=== PATIENT | male | born 1990 | race Caucasian/White ===

== ENCOUNTER → 2020-07-15 09:10 | Outpatient (BNVA) | payer OTHER, SELFPAY | PROVIDERS: PCP Internal Medicine; Visit Provider Internal Medicine | DX: Z57.5 Occupational exposure to toxic agents in other industries (principal) | CPT/HCPCS: 99203 ==

== ENCOUNTER 2021-03-08 15:45 | Outpatient (REF) | payer OTHER, SELFPAY | END 2021-03-08 15:46 | disposition home or self-care (01) | LOC: HO.LNP 15:45 | PROVIDERS: PCP Internal Medicine; Referring Provider Internal Medicine; Visit Provider Surgery | DX: L72.0 Epidermal cyst (principal); R22.2 Localized swelling, mass and lump, trunk | CPT/HCPCS: 11403; 88304 ==

== ENCOUNTER → 2021-03-22 09:22 | Outpatient (BNVA) | payer OTHER, SELFPAY | PROVIDERS: PCP Internal Medicine; Visit Provider Surgery | DX: L72.0 Epidermal cyst (principal) ==

== ENCOUNTER 2021-12-19 10:38 | Outpatient (REF) | payer OTHER, SELFPAY ==
[2021-12-19 14:01] LABS: MANUAL DIFF FLAG NO
[2021-12-19 14:22] LABS: Basophils Absolute Auto 0.1 X10*3/uL (0.0-0.2); Basophils Percent Auto 1.5 % (0-2); Eosinophils Absolute Auto 0.2 X10*3/uL (0.0-0.4); Eosinophils Percent Auto 3.5 % (0-4); Hematocrit 43.6 % (42.0-52.0); Hemoglobin 14.4 g/dl (14.0-18.0); Imm Gran Abs Auto 0.04 X10*3/uL (0.00-0.03); Imm Gran Pct Auto 0.6 % (0.0-0.4); Lymphocytes Absolute Auto 1.7 X10*3/uL (1.2-4.9); Lymphocytes Percent Auto 25.8 % (20-40); Mean Corpuscular Hemoglobin 31.2 pg (27.0-33.0); Mean Corpuscular Volume 94.4 fL (80.0-98.0); Mean Platelet Volume 10.4 fL (9.4-12.4); Monocytes Absolute Auto 0.5 X10*3/uL (0.1-1.2); Monocytes Percent Auto 8.3 % (2-11); Neutrophils Absolute Auto 3.9 x10*3/uL (2.0-8.3); Neutrophils Percent Auto 60.3 % (45-73); Platelet Count 348 X10*3/uL (160-400); Red Blood Count 4.62 X10*6/uL (4.60-5.80); Red Cell Distribution Width 11.8 % (11.0-16.0); White Blood Count 6.5 X10*3/uL (4.8-10.8)
[2021-12-19 14:49] LABS: Alanine Aminotransferase 32 U/L (0-40); Albumin Level 4.4 g/dL (3.5-5.0); Alkaline Phosphatase 62 U/L (39-117); Anion Gap 12 (12-20); Aspartate Amino Transferase 21 U/L (5-37); Bilirubin Total 0.7 mg/dL (0.0-1.0); Blood Urea Nitrogen 11 mg/dL (9-16); Calcium 9.2 mg/dL (8.4-10.2); Carbon Dioxide 26 mmol/L (22-29); Chloride 104 mmol/L (96-108); Estimated Glomerular Filt Rate > 60; Glucose Random 94 mg/dL (60-115); Potassium 4.3 mmol/L (3.3-5.1); Sodium 138 mmol/L (135-145); Total Protein 7.2 g/dL (6.5-8.0)
[2021-12-19 15:13] LABS: TSH reflex Free T4 2.56 uIU/mL (0.32-4.0)
[2021-12-19 15:21] LABS: Vitamin B12 242 pg/mL (200-900)
[2021-12-20 21:56] LABS: LDL Cholesterol Direct 131 mg/dL (<100)
[2021-12-23 13:47] LABS: Vitamin D 25-OH, D2 <4 ng/mL; Vitamin D 25-OH, D3 20 ng/mL; Vitamin D 25-OH, Total 20 ng/mL (30-100)
== END 2021-12-19 10:39 | disposition home or self-care (01) ==
LOC: HO.HMGCLDS 10:38
PROVIDERS: PCP Internal Medicine; Visit Provider Internal Medicine
DX: J45.40 Moderate persistent asthma, uncomplicated (principal); R53.83 Other fatigue
CPT/HCPCS: 36415; 80053; 82306; 82607; 83721; 84443; 85025

== ENCOUNTER 2023-03-29 08:14 | Outpatient (AMB) | payer OTHER, SELFPAY ==
[2023-03-29 08:20] VITALS: BP 118/72; PULSE 65; O2SAT 98; BMI 27.4
--- NOTE | 2023-03-29 08:20 | MHC.PC.OV ---
Vital Signs 03/29/23 08:20 Height 6 ft 1 in Weight 207 lb 6 oz BMI 27.4 BP 118/72 Blood Pressure Location Rt brachial Position Sitting Pulse 65 Pulse Source Pulse Oximeter Pulse Oximetry (%) 98 Oxygen Delivery Method Room Air Intake Visit Reasons: medication Follow Up Allergies No Known Allergies [NO KNOWN ALLERGIES] Allergy (Unknown, Verified 03/29/23 08:22) UNKNOWN Medication List - Last Reconciled 03/29/23 by Teresa Vaughan MD albuterol sulfate 90 mcg/actuation (ProAir HFA) 1 inh inhalation QID PRN 90 days fluticasone propion-salmeterol 250-50 mcg/dose (Wixela Inhub) 1 ea PO BID 90 days Tobacco use date assessed: 03/29/23 Dental Screening Dental Screen Date: 03/29/23 Did you have a dental visit in the last 12 months?: Yes Did you have a dental problem in the last 6 months where you did not have access to dental care?: No Was dental information given to patient?: Patient has dentist HPI medication Follow Up HPI Details Patient is 32-year-old gentleman came in today for a regular follow-up Patient was seen more than a year ago. He has asthma so far he is doing well with Wixela as a maintenance inhaler and albuterol as needed. When he is using maintenance inhaler he does not need to use albuterol he is tells me Recently he ran out because he did not come in for follow-up and used his grandmother's inhaler which is Advair. Patient says that he likes that better I have sent Advair for him. He is complaining of feeling palpitations off and on at night Upon asking more questions he told me that sometimes he eats very late and then goes to bed. He does feel a reflux in his throat when he does that. We talked about acid reflux and dietary control. I would recommend not to eat anything for at least 5 hours before bedtime and avoid spicy foods. He does not want to take any medication for that, he says that he will control it with diet. We did the EKG today which showed sinus Tom at 58 beats per minute inverted T-waves in AVR and V1 RR in AVF I have consulted Cardiology EKG copy was sent over for further comment Patient will return in 6 months for physical examination We talked about regular follow-up visit I would like to see him at least every 6 months. COUNTS INCLUDE 234 BEDS AT THE [facility] Medical History Epidermal cyst Surgical History History of excision of epidermal inclusion cyst History of wisdom tooth extraction Social History Housing: House Patient Tobacco Use Status: Never used Tobacco e-Cigarette/Vaping Use: Never Used Second Hand Smoke Exposure: No service: No Current occupational status: employed Cognitive needs: No Hearing needs: No Vision needs: No Questionnaire PHQ-9 Over the last 2 weeks, how often have you been bothered by any of the following problems? 1. Little interest or pleasure in doing things: not at all 2. Feeling down, depressed, or hopeless: not at all 3. Trouble falling or staying asleep, or sleeping too much: several days 4. Feeling tired or having little energy: several days 5. Poor appetite or overeating: several days 6. Feeling bad about yourself - or that you are a failure or have let yourself or your family down: not at all 7. Trouble concentrating on things, such as reading the newspaper or watching television: not at all 8. Moving or speaking so slowly that other people could have noticed. Or the opposite - being so fidgety or restless that you have been moving around a lot more than usual: not at all 9. Thoughts that you would be better off or of hurting yourself in some way: not at all Total score: 3 Depression Screening Interpretation: Negative Depression Screening Done: Yes 68265 - PHQ-9 Billing: Yes Source: Developed by Drs. Austyn Rivera, Teetee Zamarripa, Rom Robledo and colleagues, with an educational enedina from [employer]. Thrive Questionnaire Date Thrive assessed: 03/29/23 I am a: Patient What is your living situation today?: I have a steady place to live Within the past 12 months, did the food you bought not last and you didn't have the money to get more?: Never true Within the past 12 months, did you worry whether your food would run out before you got money to buy more?: Never true Do you have trouble paying for medicines?: No Do you have trouble getting transportation to medical appointments?: No Do you have trouble paying your heating and electricity bill?: No Do you have trouble taking care of your child, family member or friend?: No Do you have trouble with day-to-day activities such as bathing, preparing meals, shopping, managing finances, etc.?: No Are you currently unemployed and looking for a job?: No Are you interested in more education?: No AUDIT C Alcohol Use Questionnaire (AUDIT-C) 1. How often do you have a drink containing alcohol?: Monthly or less 2. How many drinks containing alcohol do you have on a typical day when you are drinking?: 1 or 2 3. How often do you have six or more drinks on one occasion?: Never Total Score: 1 Score Reviewed/Action Taken: Yes JAMEL-7 AMB Questionnaire JAMEL-7 Date JAMEL - 7 assessed: 03/29/23 Feeling nervous, anxious, or on edge: 1 = Several days Not being able to stop or control worryin = Not at all Worrying too much about different things: 1 = Several days Trouble relaxin = Not at all Being so restless that it is hard to sit still: 0 = Not at all Becoming easily annoyed or irritable: 1 = Several days Feeling afraid as if something awful might happen: 0 = Not at all Total JAMEL-7 score (0-4 normal; 5-9 mild; 10-14 moderate; 15-21 severe): 3 Source: Developed by Drs. Austyn Rivera, Teetee Zamarripa, Rom Robledo and colleagues, with an educational enedina from [employer]. JAMEL-7 Assessment Billing JAMEL-7 Assessment Tool: JAMEL-7 Assessment 66724 Review of Systems Const Denies chills, Denies excessive sweating, Denies fever(s) and Denies poor appetite Eyes Denies blurry vision and Denies eye pain ENT Denies disequilibrium, Denies sore throat, Denies throat swelling and Denies tongue swelling Card Denies radiating jaw, neck or arm pain and Denies paroxysmal nocturnal dyspnea Resp Denies cough and Denies hemoptysis GI Denies melena, Denies change in stool character, Denies coffee ground emesis and Denies vomiting Musc Reports as per HPI Skin/Breast Reports as per HPI Neuro Denies tremor(s) and Denies disequilibrium Endo Denies cold intolerance and Denies excessive sweating Aller/Immun Denies throat swelling and Denies tongue swelling Physical exam (Primary Care) Vital Signs: Last Vital Signs Pulse 65 03/29/23 08:20 BP 118/72 03/29/23 08:20 Pulse Ox 98 03/29/23 08:20 Oxygen Delivery Method Room Air 03/29/23 08:20 BMI result Body Mass Index 27.4 Tobacco/Smoking Status: Tobacco use Status Tobacco use date assessed 03/29/23 03/29/23 08:22 Patient Tobacco Use Status Never used Tobacco 03/29/23 08:22 e-Cigarette/Vaping Use Never Used 03/29/23 08:22 PHQ-9: PHQ-9 Score PHQ-9: Total score 3 03/29/23 08:47 Depression Screening Interpretation: Negative Thrive Assessment: Date of Thrive Assessment Date Thrive assessed 03/29/23 03/29/23 08:43 Const General: cooperative, comfortable and no acute distress Orientation/consciousness: patient oriented x3 HENMT Head: Yes normocephalic and Yes atraumatic Ears: hearing grossly normal bilaterally Eyes General: appearance normal, both eyes and all related structures Neck Neck: Yes no lymphadenopathy and No tracheal deviation Resp Effort & Inspection: normal respiratory effort, able to speak in complete sentences and no audible wheezes Cardio Other: Rhythm: regular rhythm Heart sounds: S1 normal heart sound present and S2 normal heart sound present GI Palpation (GI): Soft to palpation and nontender Auscultation: normal bowel sounds Skin General skin exam: turgor normal Neuro General: patient oriented x3 and moves all extremities Gait exam (Neuro): Normal gait present Extrem Right lower extremity: no edema Left lower extremity: no edema Psych Affect: normal affect Attitude: cooperative Office Procedures EKG [id number], Complete Assessment and Plan Assessment & Plan (1) Asthma, moderate persistent: Code(s): J45.40 - Moderate persistent asthma, uncomplicated Qualifiers: Asthma complication type: uncomplicated Qualified Code(s): J45.40 - Moderate persistent asthma, uncomplicated (2) Palpitations: Code(s): R00.2 - Palpitations (3) Vitamin D deficiency: Code(s): E55.9 - Vitamin D deficiency, unspecified (4) Dyspepsia: Code(s): R10.13 - Epigastric pain Plan Patient is 32-year-old gentleman came in today for a regular follow-up Patient was seen more than a year ago. He has asthma so far he is doing well with Wixela as a maintenance inhaler and albuterol as needed. When he is using maintenance inhaler he does not need to use albuterol he is tells me Recently he ran out because he did not come in for follow-up and used his grandmother's inhaler which is Advair. Patient says that he likes that better I have sent Advair for him. He is complaining of feeling palpitations off and on at night Upon asking more questions he told me that sometimes he eats very late and then goes to bed. He does feel a reflux in his throat when he does that. We talked about acid reflux and dietary control. I would recommend not to eat anything for at least 5 hours before bedtime and avoid spicy foods. He does not want to take any medication for that, he says that he will control it with diet. We did the EKG today which showed sinus Tom at 58 beats per minute inverted T-waves in AVR and V1 RR in AVF I have consulted Cardiology EKG copy was sent over for further comment Patient will return in 6 months for physical examination We talked about regular follow-up visit I would like to see him at least every 6 months. Orders: Orders AMB EKG-In Office Today R00.2 - Palpitations Medications: New Advair HFA 230-21 mcg/actuation (fluticasone propion-salmeterol) 2 puffs inhalation BID 12 grams 5RF 30 days NS Coding Level of Care Code Est Pt Level 5 (38056) Diagnoses Moderate persistent asthma without complication J45.40 Asthma complication type: uncomplicated Palpitations R00.2 Vitamin D deficiency E55.9 Dyspepsia R10.13 CPT Codes EKG - CPT: 55918-[id number], Complete ([id number]) Additional Codes JAMEL-7 Assessment Billing - JAMEL-7 Assessment Tool: JAMEL-7 Assessment 55644 ([id number]) Time Spent (min) 45 Comment 5 prep, 30 with the patient, 10 charting coordination of care
== END 2023-03-29 09:38 | disposition home or self-care (01) ==
PROVIDERS: PCP Internal Medicine; Visit Provider Internal Medicine
DX: J45.40 Moderate persistent asthma, uncomplicated (principal); R00.2 Palpitations; E55.9 Vitamin D deficiency, unspecified; R10.13 Epigastric pain
CPT/HCPCS: 93000; 99215

== ENCOUNTER 2023-06-26 13:53 | Outpatient (AMB) | payer OTHER, SELFPAY ==
[2023-06-26 14:13] VITALS: BP 130/60; PULSE 77; BMI 27.6
--- NOTE | 2023-06-26 14:13 | A.OFFVIS_ITS ---
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 He apparently had an EKG performed previously when he was complaining of some chest discomfort. EKG showed anteroseptal infarct. He was referred to us for further assessment. Discussing with him he has been experiencing significant GI issues with dysphagia and for the last 6 months he has been having trouble swallowing solid food. He is saying that this is a consistent symptom for him. Denying any reflux. He was a heavy alcohol drinker previously and quit over the last 1- 2 months. He seems quite anxious. He is getting some shortness of breath with activities. He also has a left-sided dull chest discomfort. This happens when he is eating. 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 During activities he does not get significant issues otherwise. [facility] Medical History Epidermal cyst Surgical History History of excision of epidermal inclusion cyst History of wisdom tooth extraction Social History Housing: House Patient Tobacco Use Status: Never used Tobacco e-Cigarette/Vaping Use: Never Used Second Hand Smoke Exposure: No service: No Current occupational status: employed Cognitive needs: No Hearing needs: No Vision needs: No Review of Systems Const Reports chills, Reports fatigue, Reports fever(s), Reports frequent falls, Reports weakness, Reports weight gain and Reports weight loss ENT Reports dizziness Card Reports chest pain, Reports leg edema, Reports lightheadedness, Reports palpitations, Reports dyspnea, Reports dyspnea on exertion and Reports orthopnea Resp Reports cough, Reports dyspnea and Reports dyspnea on exertion GI Reports bloating and Reports change in bowel habits Musc Reports muscle weakness, Reports numbness and Reports tingling Neuro Reports dizziness, Reports frequent falls, Reports numbness, Reports tingling and Reports weakness Endo Reports fatigue and Reports palpitations Physical Exam Vital Signs: Last Vital Signs Pulse 77 06/26/23 14:13 BP 130/60 06/26/23 14:13 BMI result Body Mass Index 27.6 GENERAL APPEARANCE: in no acute distress, pleasant. Anxious appearing. NECK: no carotid bruit, no jugular venous distention. SKIN: no suspicious lesions, warm and dry. HEART: no murmurs, regular rate and rhythm. LUNGS: clear to auscultation bilaterally. ABDOMEN: soft, nontender. EXTREMITIES: no edema. PERIPHERAL PULSES: equal. NEUROLOGIC: No gross deficits, AAO X 3 Office Procedures EKG Details: Sinus rhythm 77 beats per minute, normal axis, normal ECG, QTC 414 milliseconds. [id number], Complete Assessment & Plan Assessment & Plan (1) Dysphagia: Code(s): R13.10 - Dysphagia, unspecified (2) Abnormal EKG: Code(s): R94.31 - Abnormal electrocardiogram [ECG] [EKG] (3) HOLT (dyspnea on exertion): Code(s): R06.09 - Other forms of dyspnea Plan [age] gentleman presenting for abnormal EKG. EKG abnormality of anteroseptal infarct was due to lead positioning. His EKG in our office is normal. He is complaining of some dyspnea on exertion. Will get an echocardiogram to rule out any structural issues specially because he was a heavy drinker as of 1 month ago. Given dysphagia for solids, I am referring him for Gastroenterology for further workup. Thank you for allowing me to participate in the care of your patient. Please feel free to contact me if you have any questions. Orders: Orders CA echo transthoracic complete Today R06.09 - Other forms of dyspnea Referrals Gastroenterology Referral R13.10 - Dysphagia, unspecified Coding Level of Care Code New Pt Level 4 (52005) Diagnoses Dysphagia R13.10 Abnormal EKG R94.31 HOLT (dyspnea on exertion) R06.09 CPT Codes EKG - CPT: 06779-[id number], Complete ([id number])
== END 2023-06-26 14:44 | disposition home or self-care (01) ==
PROVIDERS: PCP Internal Medicine; Visit Provider Internal Medicine Cardiovascular Disease
DX: R13.10 Dysphagia, unspecified (principal); R94.31 Abnormal electrocardiogram [ECG] [EKG]; R06.09 Other forms of dyspnea
CPT/HCPCS: 93010; 99204

== ENCOUNTER → 2023-06-26 13:53 | Outpatient (BNVA) | payer OTHER, SELFPAY | PROVIDERS: PCP Internal Medicine; Visit Provider Internal Medicine Cardiovascular Disease | DX: R94.31 Abnormal electrocardiogram [ECG] [EKG] (principal); R06.09 Other forms of dyspnea; R13.10 Dysphagia, unspecified | CPT/HCPCS: 93005 ==

== ENCOUNTER → 2023-07-11 13:02 | Outpatient (REF) | payer OTHER, SELFPAY ==
--- NOTE | 2023-07-11 13:06 | CA_ITS ---
Transthoracic Echocardiogram Patient (Last, First, Middle): Elías Espino, Gender: Male Date of : 1990 Age: 32 Procedure Date: 07/11/2023 Procedure Type: Transthoracic Echocardiogram Location: OP Height: 185.42 cm Weight: 95.71 kg BSA: 2.20 m2 Heart Rate: bpm BP: 118 / 62 mmHg Manager Android: TO Referring MD: Shaquille Ziegler MD Development Executive: Lowell Egan MD Symptoms: R06.09 - Other forms of dyspnea Study Quality: Adequate ECG Rhythm: Sinus Conclusions: - Normal study Findings Left Ventricle Normal left ventricular size, thickness, and systolic function. The visually estimated ejection fraction is between 60-65%. Diastolic function is normal for age. Peak GLS is -20.3%, within normal limits Right Ventricle Normal right ventricular cavity size and systolic function. Atria Both atria are normal in size. There is no evidence of interatrial shunt. Aortic Valve Normal aortic valve structure and function. There is no aortic valve stenosis. There is no aortic valve regurgitation. Mitral Valve Normal mitral valve structure and function. There is no mitral valve regurgitation. There is no mitral valve stenosis. Pulmonic Valve The pulmonic valve is normal. There is trace pulmonic valve regurgitation. Tricuspid Valve Normal tricuspid valve structure. Tricuspid regurgitation envelope is inadequate for calculation of right ventricular systolic pressure. Normal right atrial pressure. Great Vessels All visible segments of the aorta are normal in size. The visualized portions of the pulmonary artery and branches are normal. Venous The inferior vena cava is normal in size and collapses greater than 50% with inspiration. Pericardium/Pleural There is no evidence of pericardial effusion. Prior Study Comparison No prior study available for comparison. Measurements 2D Linear Measurements IVSd: 0.92 0.6-0.9/0.6-1.0 cm LVIDd: 5.45 3.9-5.3/4.2-5.9 cm LVIDd Index: 2.48 2.4-3.2/2.2-3.1 cm/m2 LVIDs: 3.47 2.0-3.6 cm LVPWd: 0.84 0.7-1.1 cm LA Diam: 3.30 2.7-3.8/3.0-4.0 cm LAIDs Index: 1.50 1.5-2.3 cm/m2 LV Mass: 222.09 67-162/88-224 g LV Mass Index: 100.95 43-95/49-115 g/m2 LVOT Diam: 2.10 3.0+(-)1.3 cm 2D Systolic Function EF 4C: 65.40 >55% EF 2C: 64.70 >55% EF BiP: 65.90 >55% Mitral Valve MV Pk E: 0.95 MV PK A: 0.30 MV Decel Time: 219.00 E/A: 3.20 E'Lateral: 11.60 E'Medial: 8.16 E/E' Med: 11.60 E/E' Lat: 8.20 PHT: 64.00 MVA PHT: 3.44 Decel [place]: 4.32 Aortic Valve AoV Pk Gurpreet: 1.28 AoV Mn Gurpreet: 0.84 AoV VTI: 0.27 AoV Pk Grad: 7.00 Aov Mn Grad: 3.00 BANDAR Cont.VTI: 2.82 LVOT LVOT Pk Gurpreet: 1.02 LVOT Mn Gurpreet: 0.64 LVOT VTI: 0.22 LVOT Pk Grad: 4.00 LVOT Mn Grad: 2.00 LVOT Diam: 2.10 LVOT Area: 3.46 Diastolic Function MV Pk E: 0.95 MV Pk A: 0.30 E/A: 3.20 E'Medial: 8.16 E/E' Med: 11.60 E' Laterial: 11.60 E/E' Lat: 8.20 Right Ventricle TAPSE (mm): 23.50 TVS' Gurpreet: 11.70 Tricuspid Valve RA Press: 3.00 Great Vessels Aorta Sinus of Valsalva: 3.28 2.0-3.5 cm Ao Asc: 3.00 2.1-3.4 cm Updated in Other Vendor System with Status of Final Lowell Egan MD electronically signed on 07/12/2023 1:11:51 PM with status of Final
== END ==
LOC: HO.CARD 13:02
PROVIDERS: PCP Internal Medicine; Visit Provider Internal Medicine Cardiovascular Disease
DX: R06.09 Other forms of dyspnea (principal)
CPT/HCPCS: 93306; 93356

== ENCOUNTER → 2023-07-11 13:06 | Outpatient (BNV) | payer OTHER, SELFPAY | PROVIDERS: PCP Internal Medicine; Visit Provider Internal Medicine Cardiovascular Disease | DX: R06.09 Other forms of dyspnea (principal) | CPT/HCPCS: 93306 ==

== ENCOUNTER 2023-09-25 12:05 | Outpatient (AMB) | payer OTHER, SELFPAY ==
--- NOTE | 2023-09-25 12:09 | A.OFFVIS_ITS ---
Vital Signs 09/25/23 12:13 Height 6 ft 1 in Weight 202 lb BMI 26.6 BP 105/49 L Blood Pressure Location Lt brachial Position Sitting Pulse 85 Intake Visit Reasons: Dysphagia Intake Note: Patient new consult for Dysphagia. Patient cc: swallowing problems with solid food, acid reflex with burning sensation, and constipation on and off. 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 Accompanied by: Self / Same As Patient Allergies No Known Allergies [NO KNOWN ALLERGIES] Allergy (Unknown, Verified 09/25/23 12:09) UNKNOWN Medication List - Last Reconciled 09/25/23 by Cheryl Roberson PA-C albuterol sulfate 90 mcg/actuation (ProAir HFA) 1 inh inhalation QID PRN 90 days fluticasone propion-salmeterol 250-50 mcg/dose (Wixela Inhub) 1 ea PO BID 90 days HPI Comments Details: A 32-year-old male referred with dysphagia-mostly solid foods- started last fall-he had a recent episode with eating a salad- He has had heartburn- saw cardiology referred to GI Asthma- well controlled with inhalers-he rinses He does feel acid- Has no nausea, vomiting, abdominal pain, fever chills PFSH Medical History Epidermal cyst Surgical History History of excision of epidermal inclusion cyst History of wisdom tooth extraction Social History Housing: House Patient Tobacco Use Status: Never used Tobacco e-Cigarette/Vaping Use: Never Used Second Hand Smoke Exposure: No service: No Current occupational status: employed Cognitive needs: No Hearing needs: No Vision needs: No Review of Systems Const All systems reviewed & are unremarkable except as noted in HPI and below ENT Reports dysphagia Card Denies chest pain and Denies dyspnea Resp Denies dyspnea GI Denies abdominal pain, Reports dysphagia and Denies vomiting Physical Exam Vital Signs: Last Vital Signs Pulse 85 09/25/23 12:13 BP 105/49 L 09/25/23 12:13 BMI result Body Mass Index 26.6 Const General: cooperative, healthy appearing and comfortable Orientation/consciousness: patient oriented x3 Limitations: no limitations Eyes Sclerae: sclerae normal Resp Effort & Inspection: normal respiratory effort and able to speak in complete sentences Auscultation: clear to auscultation bilaterally, no rales, no rhonchi and no wheezes Cardio Rate: regular rate Rhythm: regular rhythm Heart sounds: S1 normal heart sound present and S2 normal heart sound present GI Palpation (GI): Soft to palpation and nontender Auscultation: normal bowel sounds Skin General skin exam: no rashes or lesions noted Neuro General: patient oriented x3 Extrem General: Yes full ROM Psych Appearance: grossly normal and well kempt Mental Status: mental status grossly normal Speech and movement: Normal speech and movement present and Clear speech present Affect: normal affect Attitude: cooperative Thought process: Normal thought process present Thought content: Normal thought content present Insight: Good insight present (Psych) Judgement: Good judgement present (Psych) Assessment & Plan Assessment & Plan (1) Asthma, moderate persistent: Code(s): J45.40 - Moderate persistent asthma, uncomplicated Category: Medical Qualifiers: Asthma complication type: uncomplicated Qualified Code(s): J45.40 - Moderate persistent asthma, uncomplicated (2) Dysphagia: Comment: inhalers/ r/o esophagitis- stricture Code(s): R13.10 - Dysphagia, unspecified Category: Medical Plan: eat slowly chew well- Plan EGD- poss- dil UGI series Pantoprazole 40 mg reflux precautions Orders: Orders EDG - GI Use Only 09/25/23 R13.10 - Dysphagia, unspecified Medications: New pantoprazole 40 mg PO DAILY 30 tabs 4RF 30 days Patient Instructions: Pleasant 32-year-old male episodes of dysphagia EGD- poss- dil UGI series Pantoprazole 40 mg reflux precautions Call with questions or concerns
[2023-09-25 12:13] VITALS: BP 105/49; PULSE 85; BMI 26.6
== END 2023-09-25 12:48 | disposition home or self-care (01) ==
PROVIDERS: PCP Internal Medicine; Visit Provider Physician Assistant
DX: J45.40 Moderate persistent asthma, uncomplicated (principal); R13.10 Dysphagia, unspecified
CPT/HCPCS: 99203

== ENCOUNTER → 2023-09-25 12:05 | Outpatient (BNVA) | payer OTHER, SELFPAY | PROVIDERS: PCP Internal Medicine; Visit Provider Physician Assistant ==

== ENCOUNTER 2023-11-19 11:11 | Day surgery (SDC) | payer OTHER, SELFPAY ==
[2023-11-19] VITALS (7 sets, daily range): BP systolic 104–116; BP diastolic 63–71; PULSE 54–77; RESP 16–18; TEMP 36.3–36.4; O2SAT 93–98; BMI 26.4
--- NOTE | 2023-11-19 11:30 | P.HPSUR_ITS ---
Pre-Procedural Eval Section A - 24 Hr Update-Section A only Date of Service: 11/19/23 Section B - Complete if H&P > 30 days Chief Complaint: Dysphagia, unspecified Relevant Family History (Specify if Yes): No Relevant Social History: None Present Medications: see Short Stay Collaborative assessment Medical History: Significant History (Epidermal cyst) History of Previous Operations: Relevant previous surgery/procedure and date(s) (History of excision of epidermal inclusion cyst History of wisdom tooth extraction) Allergies: Allergies Allergy/AdvReac Type Severity Reaction Status Date / Time No Known Allergies Allergy Unknown UNKNOWN Verified 09/25/23 12:09 [NO KNOWN ALLERGIES] Review of Systems Sugical H&P ROS: Negative: Constitution, Cardiovascular, Respiratory, Neurological, Psychiatric, Hem-Onc, Allergic/Immunologic, Gastrointestinal, Ge nitourinary, Musculoskeletal, Integumentary, Endocrine and Eyes/Ears/Nose/Throat Exam Surgical H&P Exam: Normal: HEENT, Normal: Heart, Normal: Lungs, Normal: Extremities, Normal: Abdomen, Normal: Skin and Normal: Neurological Plan Diagnosis/Plan: Unchanged I have reviewed the history and physical and performed a pertinent physical examination on my patient. No changes have occurred unless specified. Time Spent With Patient Time: Total time managing care of this patient today ____ minutes.
--- NOTE | 2023-11-19 11:40 | HO.ANESPROP2 ---
[facility] Active Problems Active Problems: All Active Problems HOLT (dyspnea on exertion) (Acute) Dysphagia (Acute) Abnormal EKG (Acute) Palpitations (Acute) Dyspepsia (Acute) Vitamin D deficiency (Acute) Lethargy (Acute) Post-COVID syndrome (Acute) Epidermal cyst (Acute) Asthma, moderate persistent (Acute) Encounter for general adult medical examination with abnormal findings (Acute) Dermoid cyst (Acute) Past Medical History Medical History Epidermal cyst Surgical History Surgical History History of excision of epidermal inclusion cyst History of wisdom tooth extraction History of Problems with Anesthesia: No Social History Social History Housing: House Patient Tobacco Use Status: Never used Tobacco e-Cigarette/Vaping Use: Never Used Second Hand Smoke Exposure: No Use of substances other than those prescribed or required for medical reasons: Yes Substance Use Type Other:: occas gummy Are you DNR?: No Advance Directives: No Advance Directives Information Provided: Yes service: No Current occupational status: employed Cognitive needs: No Hearing needs: No Vision needs: No Meds Allergies Allergy/AdvReac Type Severity Reaction Status Date / Time No Known Allergies Allergy Unknown UNKNOWN Verified 09/25/23 12:09 [NO KNOWN ALLERGIES] Exam Height,Weight and Vital Signs: Height 6 ft 1 in Last Vital Signs Temp 97.5 F 11/19/23 11:32 Pulse 61 11/19/23 11:32 Resp 18 11/19/23 11:32 BP 104/64 11/19/23 11:32 Pulse Ox 95 11/19/23 11:32 O2 Del Method Room Air 11/19/23 11:32 Airway Mallampati Class: II TM Dist: >3cm Neck ROM: Full Loose/Missing/Broken Teeth: No Heart: rrr Lungs: cta Assessment and Plan Assessment Anesthesia Assessment: Anesthesia Plan Discussed and Chart Reviewed Final Anesthetic Review History of Problems with Anesthesia: No NPO: Yes ASA Class: II Final Preanesthetic Review: No Changes in Pt Med Stat, Meds/Allgs Chart Reviewed, Consent Obtained/Reviewed and Anes Risks/Benef Reviewed Patient Risk: Intermediate Procedure Risk: Intermediate Anesthetic Plan Anesthetic Plan: TIVA Disposition: Standard PACU
[2023-11-19] MEDS: Albuterol/Iprat 2.5/0.5MG 3 ML AMPUL.NEB INHALE (11:53)
--- NOTE | 2023-11-19 12:45 | P.HPSUR_ITS ---
Pre-Procedural Eval Section A - 24 Hr Update-Section A only Date of Service: 11/19/23 Section B - Complete if H&P > 30 days Chief Complaint: Dysphagia, unspecified Relevant Family History (Specify if Yes): No Relevant Social History: None Present Medications: see Short Stay Collaborative assessment Medical History: Significant History (Epidermal cyst) History of Previous Operations: Relevant previous surgery/procedure and date(s) (History of excision of epidermal inclusion cyst History of wisdom tooth extraction) Allergies: Allergies Allergy/AdvReac Type Severity Reaction Status Date / Time No Known Allergies Allergy Unknown UNKNOWN Verified 09/25/23 12:09 [NO KNOWN ALLERGIES] Review of Systems Sugical H&P ROS: Negative: Constitution, Cardiovascular, Respiratory, Neurological, Psychiatric, Hem-Onc, Allergic/Immunologic, Gastrointestinal, Gen itourinary, Musculoskeletal, Integumentary, Endocrine and Eyes/Ears/Nose/Throat Exam Surgical H&P Exam: Normal: HEENT, Normal: Heart, Normal: Lungs, Normal: Extremities, Normal: Abdomen, Normal: Skin and Normal: Neurological Plan Diagnosis/Plan: Unchanged I have reviewed the history and physical and performed a pertinent physical examination on my patient. No changes have occurred unless specified. Time Spent With Patient Time: Total time managing care of this patient today ____ minutes.
--- NOTE | 2023-11-19 12:45 | W.PM.OPN ---
Operative Note Operative Note Date of Service: 11/19/23 Narrative: Procedure Description: EGD Indication: Dysphagia Anesthesia: MAC FLEXIBLE TRANSORAL UPPER GASTROINTESTINAL ENDOSCOPY UPPER ENDOSCOPY Consent: Indications for the procedure and potential complications of bleeding, perforation, reaction to medications and missed diagnosis were discussed with the patient and informed consent was obtained. Instrument: Olympus GIF H 190 J mid size upper endoscope Monitoring: Vital signs and clinical assessment, continuous EKG monitoring, Pulse oximetry, Carbon Dioxide monitoring and blood pressure monitoring were done throughout the procedure. Procedure: The patient was placed in the left lateral decubitis position and pre-procedure medications were administered and a bite block was placed. The endoscope was inserted into the mouth and advanced under direct vision to the third part of duodenum. A careful inspection was made as the upper endoscope was withdrawn including a retroflexed examination of the proximal stomach; Findings and interventions are described below. Findings: Larynx:normal Esophagus: GE junction at 40 cm, diaphragm hiatus at 40 cm, schatzki ring noted, dilated with balloon to 20 mm with heme noted, bx then taken from distal and proximal esophagus Stomach: normal . Biopsies were obtained. Grade 2 flap valve on retroflexed examination of the cardia. Duodenum: Normal bulb and descending duodenum, Intervention: Biopsies as noted above, balloon dilation Impression/Findings: schatzki ring PLAN: ensure compliance with PPI GERD precautions if ongoing sx then can consider RAST testing
== END 2023-11-19 14:31 | disposition home or self-care (01) ==
PROVIDERS: PCP Internal Medicine; Visit Provider Internal Medicine Gastroenterology
PROC: (CPT 43249; principal; 2023-11-19 12:20)
DX: K22.2 Esophageal obstruction (principal); J45.40 Moderate persistent asthma, uncomplicated
CPT/HCPCS: 43249; 43239; 88305; 88313; 88342; 94640; C1726; J1596; J2704

== ENCOUNTER → 2023-11-19 11:11 | Outpatient (BNV) | payer OTHER, SELFPAY | PROVIDERS: PCP Internal Medicine; Visit Provider Internal Medicine Gastroenterology | DX: K22.2 Esophageal obstruction (principal); K20.90 Esophagitis, unspecified without bleeding | CPT/HCPCS: 43239; 43249 ==

== ENCOUNTER 2024-03-24 08:46 | Outpatient (AMB) | payer OTHER, SELFPAY ==
[2024-03-24 08:49] VITALS: BP 120/66; PULSE 67; O2SAT 97; BMI 26.2
--- NOTE | 2024-03-24 08:49 | A.OFFPC_ITS ---
Vital Signs 03/24/24 08:49 Height 6 ft 1 in Weight 198 lb 8 oz BMI 26.2 BP 120/66 Blood Pressure Location Rt brachial Position Sitting Pulse 67 Pulse Source Pulse Oximeter Pulse Oximetry (%) 97 Oxygen Delivery Method Room Air Intake Visit Reasons: Medication refill Allergies No Known Allergies [NO KNOWN ALLERGIES] Allergy (Unknown, Verified 03/24/24 08:52) UNKNOWN Medication List - Last Reconciled 03/24/24 by Teresa Vaughan MD albuterol sulfate 90 mcg/actuation (ProAir HFA) 1 inh inhalation QID PRN 90 days fluticasone propion-salmeterol 250-50 mcg/dose (Wixela Inhub) 1 ea PO BID 90 days pantoprazole 40 mg PO DAILY Tobacco use date assessed: 03/24/24 Dental Screening Dental Screen Date: 03/24/24 Did you have a dental visit in the last 12 months?: Yes Did you have a dental problem in the last 6 months where you did not have access to dental care?: No Was dental information given to patient?: Patient has dentist HPI Medication refill HPI Details Patient is a 33-year-old gentleman who was last seen March of last year came in today for evaluation and medication refill Patient have moderate persistent asthma and is currently taking Wixela 250 On examination he still have a slight wheezing, patient says that at times he have difficulty taking a deep breath because of fees I am increasing the dose of axilla to 500 Patient is taking it 2 times a day, he is rinsing his mouth after May of last year patient had EGD done through [facility] And was started on pantoprazole 40 mg, after he ran out he started taking omeprazole 20 mg Patient is now feeling better and there is no more discomfort in his throat He will return in 6 months for physical exam appointment [facility] Medical History Epidermal cyst Surgical History History of esophagogastroduodenoscopy (EGD) History of excision of epidermal inclusion cyst History of wisdom tooth extraction Social History Housing: House Patient Tobacco Use Status: Never used Tobacco e-Cigarette/Vaping Use: Never Used Second Hand Smoke Exposure: No service: No Current occupational status: employed Cognitive needs: No Hearing needs: No Vision needs: No Questionnaire PHQ-9 Over the last 2 weeks, how often have you been bothered by any of the following problems? 1. Little interest or pleasure in doing things: not at all 2. Feeling down, depressed, or hopeless: not at all 3. Trouble falling or staying asleep, or sleeping too much: not at all 4. Feeling tired or having little energy: several days 5. Poor appetite or overeating: several days 6. Feeling bad about yourself - or that you are a failure or have let yourself or your family down: not at all 7. Trouble concentrating on things, such as reading the newspaper or watching television: not at all 8. Moving or speaking so slowly that other people could have noticed. Or the opposite - being so fidgety or restless that you have been moving around a lot more than usual: not at all 9. Thoughts that you would be better off or of hurting yourself in some way: not at all Total score: 2 Depression Screening Interpretation: Negative Depression Screening Done: Yes 13424 - PHQ-9 Billing: Yes Source: Developed by Drs. Austyn Rivera, Teetee Zamarripa, Rom Robledo and colleagues, with an educational enedina from [employer]. Thrive Questionnaire Date Thrive assessed: 03/24/24 I am a: Patient What is your living situation today?: I have a steady place to live Within the past 12 months, did the food you bought not last and you didn't have the money to get more?: Never true Within the past 12 months, did you worry whether your food would run out before you got money to buy more?: Never true Do you have trouble paying for medicines?: No Do you have trouble getting transportation to medical appointments?: No Do you have trouble paying your heating and electricity bill?: No Do you have trouble taking care of your child, family member or friend?: No Do you have trouble with day-to-day activities such as bathing, preparing meals, shopping, managing finances, etc.?: No Are you currently unemployed and looking for a job?: No Are you interested in more education?: No Please select the resources that you would like help with: None Currently or been in a relationship where the following occur: No concerns reported THRIVE Score: 0 AUDIT C Alcohol Use Questionnaire (AUDIT-C) 1. How often do you have a drink containing alcohol?: 2-4 times a month 2. How many drinks containing alcohol do you have on a typical day when you are drinking?: 3 or 4 3. How often do you have six or more drinks on one occasion?: Less than monthly Total Score: 4 Score Reviewed/Action Taken: Yes JAMEL-7 AMB Questionnaire JAMEL-7 Date JAMEL - 7 assessed: 03/24/24 Feeling nervous, anxious, or on edge: 1 = Several days Not being able to stop or control worryin = Several days Worrying too much about different things: 1 = Several days Trouble relaxin = Several days Being so restless that it is hard to sit still: 0 = Not at all Becoming easily annoyed or irritable: 0 = Not at all Feeling afraid as if something awful might happen: 0 = Not at all Total JAMEL-7 score (0-4 normal; 5-9 mild; 10-14 moderate; 15-21 severe): 4 Source: Developed by Drs. Austyn Rivera, Teetee Zamarripa, Rom Robledo and colleagues, with an educational enedina from [employer]. JAMEL-7 Assessment Billing JAMEL-7 Assessment Tool: JAMEL-7 Assessment 52174 Review of Systems Const Denies chills and Denies fever(s) ENT Denies epistaxis and Denies nasal discharge Card Denies chest pain Resp Denies chest congestion, Denies cough and Denies hemoptysis GI Denies diarrhea and Denies nausea Skin/Breast Denies rash Neuro Reports no additional complaints Psych Reports no additional complaints Endo Reports no additional complaints Physical exam (Primary Care) Vital Signs: Last Vital Signs Pulse 67 03/24/24 08:49 BP 120/66 03/24/24 08:49 Pulse Ox 97 03/24/24 08:49 Oxygen Delivery Method Room Air 03/24/24 08:49 BMI result Body Mass Index 26.2 Tobacco/Smoking Status: Tobacco use Status Tobacco use date assessed 03/24/24 03/24/24 08:53 Patient Tobacco Use Status Never used Tobacco 03/24/24 08:51 e-Cigarette/Vaping Use Never Used 03/24/24 08:51 PHQ-9: PHQ-9 Score PHQ-9: Total score 2 03/24/24 08:53 Depression Screening Interpretation: Negative Thrive Assessment: Date of Thrive Assessment Date Thrive assessed 03/24/24 03/24/24 08:53 Currently or been in a relationship where the following occur: No concerns reported Const General: cooperative, comfortable and no acute distress Orientation/consciousness: patient oriented x3 HENMT Head: Yes normocephalic Eyes General: appearance normal, both eyes and all related structures Neck Neck: Yes supple Resp Effort & Inspection: normal respiratory effort, no cough and no stridor Cardio Rhythm: regular rhythm Heart sounds: S1 normal heart sound present and S2 normal heart sound present Skin General skin exam: turgor normal Neuro General: patient oriented x3, tone normal and moves all extremities Extrem Right lower extremity: no edema Left lower extremity: no edema Coding Level of Care Code Est Pt Level 3 (41008) Diagnoses Moderate persistent asthma without complication J45.40 Asthma complication type: uncomplicated Dyspepsia R10.13 Additional Codes JAMEL-7 Assessment Billing - JAMEL-7 Assessment Tool: JAMEL-7 Assessment 43293 ([id number]) Assessment & Plan Assessment & Plan (1) Asthma, moderate persistent: Code(s): J45.40 - Moderate persistent asthma, uncomplicated Category: Medical Qualifiers: Asthma complication type: uncomplicated Qualified Code(s): J45.40 - Moderate persistent asthma, uncomplicated (2) Dyspepsia: Code(s): R10.13 - Epigastric pain Category: Medical Plan Patient is a 33-year-old gentleman who was last seen March of last year came in today for evaluation and medication refill Patient have moderate persistent asthma and is currently taking Wixela 250 On examination he still have a slight wheezing, patient says that at times he have difficulty taking a deep breath because of fees I am increasing the dose of axilla to 500 Patient is taking it 2 times a day, he is rinsing his mouth after May of last year patient had EGD done through [facility] And was started on pantoprazole 40 mg, after he ran out he started taking omeprazole 20 mg Patient is now feeling better and there is no more discomfort in his throat He will return in 6 months for physical exam appointment Medications: New fluticasone propion-salmeterol 500-50 mcg/dose (Wixela Inhub) 1 inh inhalation BID 3 multiple units 1RF 90 days Discontinued fluticasone propion-salmeterol 250-50 mcg/dose (Wixela Inhub) Discontinued Reason: Doctor's Order 1 ea PO BID 90 days 3 multiple units 1RF
== END 2024-03-24 09:06 | disposition home or self-care (01) ==
PROVIDERS: PCP Internal Medicine; Visit Provider Internal Medicine
DX: J45.40 Moderate persistent asthma, uncomplicated (principal); R10.13 Epigastric pain

== ENCOUNTER → 2024-03-24 08:46 | Outpatient (BNVA) | payer OTHER, SELFPAY | PROVIDERS: PCP Internal Medicine; Visit Provider Internal Medicine | DX: J45.40 Moderate persistent asthma, uncomplicated (principal); R10.13 Epigastric pain | CPT/HCPCS: 96127 ==

== ENCOUNTER 2024-09-23 12:13 | Outpatient (REF) | payer OTHER, SELFPAY ==
--- OUTSIDE RECORDS SUMMARY | 2024-09-23 14:54 | XMS_ITS | Clinical Summary ---
[facility] Address [address] [place] [address] Care Team Providers Care Supervisor Doping Name Role Phone Teresa Vaughan MD Primary Care Provider [phone] Social History Tobacco Use Types Packs/Day Years [...] age to complete this topic Care Teams Supervisor Doping Relationship Specialty Start Date End Date Teresa Vaughan MD [address] [place] [address] PCP - General 01/12/24
--- OUTSIDE RECORDS SUMMARY | 2024-09-23 14:54 | XMS_ITS | Clinical Summary ---
Author Organization [facility] Address [address] [place] [address] Care Team Providers Care Car Dealer Name Role Phone Teresa Vaughan MD Primary Care Provider [phone] Allergies No known active allergies Medications No known medications Social History Tobacco Use Types Packs/Day Years Used Date Smoking Tobacco: Never Assessed Sex and Gender Information Value Date Recorded Sex Assigned at Male 01/12/2024 6:37 PM EDT Gender Identity Not on file Sexual Orientation Not on file Job Start Date Occupation Industry Not on file Not on file Not on file Last Filed Vital Signs Vital Sign Reading Time Taken Comments Blood Pressure 130/73 01/12/2024 6:07 PM EDT Pulse 90 01/12/2024 6:07 PM EDT Temperature 36.7 ??C (98 ??F) 01/12/2024 6:07 PM EDT Respiratory Rate 17 01/12/2024 6:07 PM EDT Oxygen Saturation 98% 01/12/2024 6:07 PM EDT Inhaled Oxygen Concentration - - Weight 79.4 kg (175 lb) 01/12/2024 6:07 PM EDT Height - - Body Mass Index - - Plan of Treatment Health Maintenance Due Date Last Done Comments Hepatitis B Vaccines (1 of 3 - 3-dose series) 1991 Hepatitis C Screening 1991 COVID-19 Vaccine (#1) 05/15/1992 Depression Screening 2003 Preventative Health Evaluation 11/12/2009 DTap / Tdap / Td (1 - Tdap) 11/12/2010 Influenza Vaccine (#1) 2024 Pneumococcal Vaccine Aged Out No long er eligible based on patient's age to complete this topic RSV Ped < 20 months Aged Out No longe r eligible based on patient's age to complete this topic Care Teams Car Dealer Relationship Specialty Start Date End Date Teresa Vaughan MD [address] [facility] [place] [address] PCP - General Internal Medicine 01/12/24
[2024-09-23 16:05] LABS: MANUAL DIFF FLAG NO
[2024-09-23 16:11] LABS: Basophils Absolute Auto 0.1 X10*3/uL (0.0-0.2); Basophils Percent Auto 1.1 % (0-2); Eosinophils Absolute Auto 0.1 X10*3/uL (0.0-0.4); Eosinophils Percent Auto 1.1 % (0-4); Hematocrit 44.9 % (42.0-52.0); Hemoglobin 14.7 g/dl (14.0-18.0); Imm Gran Abs Auto 0.03 X10*3/uL (0.00-0.03); Imm Gran Pct Auto 0.4 % (0.0-0.4); Lymphocytes Absolute Auto 1.9 X10*3/uL (1.2-4.9); Lymphocytes Percent Auto 24.7 % (20-40); Mean Corpuscular HGB Conc 32.7 g/dl (31.0-36.0); Mean Corpuscular Hemoglobin 31.1 pg (27.0-33.0); Mean Corpuscular Volume 94.9 fL (80.0-98.0); Mean Platelet Volume 10.5 fL (9.4-12.4); Monocytes Absolute Auto 0.6 X10*3/uL (0.1-1.2); Neutrophils Absolute Auto 4.9 x10*3/uL (2.0-8.3); Neutrophils Percent Auto 64.7 % (45-73); Platelet Count 324 X10*3/uL (160-400); Red Blood Count 4.73 X10*6/uL (4.60-5.80); Red Cell Distribution Width 11.8 % (11.0-16.0); White Blood Count 7.6 X10*3/uL (4.8-10.8)
[2024-09-23 16:41] LABS: Alanine Aminotransferase 15 U/L (0-40); Albumin Level 4.7 g/dL (3.5-5.0); Anion Gap 12 (12-20); Aspartate Amino Transferase 21 U/L (5-37); Bilirubin Total 0.7 mg/dL (0.0-1.0); Blood Urea Nitrogen 14 mg/dL (9-16); Calcium 9.5 mg/dL (8.4-10.2); Carbon Dioxide 27 mmol/L (22-29); Chloride 105 mmol/L (96-108); Estimated Glomerular Filt Rate > 60; Glucose Random 87 mg/dL (60-115); Potassium 3.9 mmol/L (3.3-5.1); Sodium 140 mmol/L (135-145); Total Protein 7.6 g/dL (6.5-8.0)
[2024-09-23 16:48] LABS: Alkaline Phosphatase 61 U/L (39-117)
[2024-09-24 06:58] LABS: LDL Cholesterol Direct 101 mg/dL (<100)
[2024-09-27 18:03] LABS: Vitamin D 25-OH, D2 <4 ng/mL; Vitamin D 25-OH, D3 22 ng/mL; Vitamin D 25-OH, Total 22 ng/mL (30-100)
== END 2024-09-23 12:14 | disposition home or self-care (01) ==
LOC: HO.HMGCLDS 12:13
PROVIDERS: PCP Internal Medicine; Visit Provider Internal Medicine
DX: Z00.01 Encounter for general adult medical examination with abnormal findings (principal); R07.89 Other chest pain; J45.40 Moderate persistent asthma, uncomplicated; K21.9 Gastro-esophageal reflux disease without esophagitis; E55.9 Vitamin D deficiency, unspecified; E66.3 Overweight; R94.31 Abnormal electrocardiogram [ECG] [EKG]
CPT/HCPCS: 36415; 80053; 82306; 83721; 85025; 93005; 96127

== ENCOUNTER 2024-09-23 12:13 | Outpatient (AMB) | payer OTHER, SELFPAY ==
[2024-09-23 12:17] VITALS: BP 118/68; PULSE 70; O2SAT 99; BMI 26.8
--- NOTE | 2024-09-23 12:17 | MHC.PC.OV ---
Vital Signs 09/23/24 12:17 Height 6 ft 1 in Weight 203 lb 2 oz BMI 26.8 BP 118/68 Blood Pressure Location Lt brachial Position Sitting Pulse 70 Pulse Source Pulse Oximeter Pulse Oximetry (%) 99 Oxygen Delivery Method Room Air Intake Visit Reasons: Annual PE Allergies No Known Allergies [NO KNOWN ALLERGIES] Allergy (Unknown, Verified 09/23/24 12:20) UNKNOWN Medication List - Last Reconciled 09/23/24 by Teresa Vaughan MD albuterol sulfate 90 mcg/actuation (ProAir HFA) 1 inh inhalation QID PRN 90 days fluticasone propion-salmeterol 500-50 mcg/dose (Wixela Inhub) 1 inh inhalation BID 90 days omeprazole 20 mg PO DAILY Tobacco use date assessed: 09/23/24 Dental Screening Dental Screen Date: 09/23/24 Did you have a dental visit in the last 12 months?: Yes Did you have a dental problem in the last 6 months where you did not have access to dental care?: No Was dental information given to patient?: Patient has dentist HPI Annual PE HPI Details History of Present Illness - The patient is a 33-year-old male presenting with asthma, GERD, and for a physical exam. - Asthma is well-controlled but the patient experiences GERD symptoms, described as throat discomfort, which occurs three to four times weekly and is managed with omeprazole. It seems as if Episodes of GERD sometimes manifest as chest tightness without pain, causing discomfort. - GERD symptoms worsen when lying down or after consuming specific foods such as spaghetti, pizza, or citrus. - Previous vitamin D deficiency was identified, as levels were low two years ago, with the patient having stopped supplementation three to four months prior. - The patient denies any family history of heart disease. - Alcohol consumption is occasional, reported as once monthly, consisting of two or three beers or vodka. - Noted use and cessation of alternative nicotine products in the last month. Health Maintenance - Discussed the importance of continuous vitamin D supplementation due to previously identified deficiency. - Recommended that patient maintain a healthy diet avoiding specific triggers of GERD (spaghetti, pizza with tomato sauce, and citrus). 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 Diagnostic results: Lab orders placed EKG done today shows normal sinus rhythm no acute findings, slight abnormalities noted inverted T-waves V1 RR pattern in AVF I have ordered a stress test for the patient Patient Instructions - Begin daily use of pantoprazole 40 mg for better management of GERD symptoms. - Continue vitamin D supplementation; consider [id number] options if necessary. - Avoid specific trigger foods such as spaghetti, tomato sauce, and citrus to reduce GERD symptoms. - Monitor for any changes or worsening of symptoms and seek care if necessary. - continue inhaler Follow-up 3 months Review of Systems - General: No fever no chills - Neurological: No headaches no dizziness - Ear nose throat: No sore throat no hearing difficulty no ear pain - Cardiovascular: No syncope, no chest pain, no palpitations - Gastrointestinal: No nausea vomiting or diarrhea - Endocrine: No polyuria polydipsia no heat intolerance - Genitourinary: No dysuria - Skin: No new complaints Physical Exam General: Cooperative, healthy appearing, comfortable, no acute distress Orientation: Patient oriented x3 Head: Normal to inspection Ears: Within normal limit visually Nose: Normal external nose present Face and sinus: Normal facial exam Eyes: Appearance normal, extraocular movement intact pupils reactive Neck: Normal visual inspection and supple Respiratory: Normal respiratory effort and able to speak in complete sentences. Clear to auscultation, no stridor Cardiovascular: S1 and S2 GI: Normal to inspection. Soft to palpation and nontender Skin: Turgor normal, no acute findings Neuro: Patient oriented x3, motor sensory intact, balance intact, tandem pass Extremities: Normal to inspection [facility] Medical History Epidermal cyst Surgical History History of esophagogastroduodenoscopy (EGD) History of excision of epidermal inclusion cyst History of wisdom tooth extraction Social History Housing: House Patient Tobacco Use Status: Never used Tobacco e-Cigarette/Vaping Use: Never Used Second Hand Smoke Exposure: No service: No Current occupational status: employed Cognitive needs: No Hearing needs: No Vision needs: No Questionnaire PHQ-9 Over the last 2 weeks, how often have you been bothered by any of the following problems? 1. Little interest or pleasure in doing things: not at all 2. Feeling down, depressed, or hopeless: not at all 3. Trouble falling or staying asleep, or sleeping too much: several days 4. Feeling tired or having little energy: several days 5. Poor appetite or overeating: not at all 6. Feeling bad about yourself - or that you are a failure or have let yourself or your family down: not at all 7. Trouble concentrating on things, such as reading the newspaper or watching television: not at all 8. Moving or speaking so slowly that other people could have noticed. Or the opposite - being so fidgety or restless that you have been moving around a lot more than usual: not at all 9. Thoughts that you would be better off or of hurting yourself in some way: not at all Total score: 2 Depression Screening Interpretation: Negative Depression Screening Done: Yes 78561 - PHQ-9 Billing: Yes Source: Developed by Drs. Austyn Rivera, Teetee Zamarripa, Rom Robledo and colleagues, with an educational enedina from [employer]. Thrive Questionnaire Date Thrive assessed: 09/23/24 I am a: Patient What is your living situation today?: I have a steady place to live Within the past 12 months, did the food you bought not last and you didn't have the money to get more?: Never true Within the past 12 months, did you worry whether your food would run out before you got money to buy more?: Never true Do you have trouble paying for medicines?: No Do you have trouble getting transportation to medical appointments?: No Do you have trouble paying your heating and electricity bill?: No Do you have trouble taking care of your child, family member or friend?: No Do you have trouble with day-to-day activities such as bathing, preparing meals, shopping, managing finances, etc.?: No Are you currently unemployed and looking for a job?: No Are you interested in more education?: No Please select the resources that you would like help with: None Currently or been in a relationship where the following occur: No concerns reported THRIVE Score: 0 AUDIT C Alcohol Use Questionnaire (AUDIT-C) 1. How often do you have a drink containing alcohol?: Monthly or less 2. How many drinks containing alcohol do you have on a typical day when you are drinking?: 3 or 4 3. How often do you have six or more drinks on one occasion?: Less than monthly Total Score: 3 Score Reviewed/Action Taken: Yes JAMEL-7 AMB Questionnaire JAMEL-7 Date JAMEL - 7 assessed: 09/23/24 Feeling nervous, anxious, or on edge: 1 = Several days Not being able to stop or control worryin = Not at all Worrying too much about different things: 0 = Not at all Trouble relaxin = Not at all Being so restless that it is hard to sit still: 0 = Not at all Becoming easily annoyed or irritable: 0 = Not at all Feeling afraid as if something awful might happen: 0 = Not at all Total JAMEL-7 score (0-4 normal; 5-9 mild; 10-14 moderate; 15-21 severe): 1 Source: Developed by Drs. Austyn Rivera, Teetee Zamarripa, Rom Robledo and colleagues, with an educational enedina from [employer]. JAMEL-7 Assessment Billing JAMEL-7 Assessment Tool: JAMEL-7 Assessment 51399 Physical exam (Primary Care) Vital Signs: Last Vital Signs Pulse 70 09/23/24 12:17 BP 118/68 09/23/24 12:17 Pulse Ox 99 09/23/24 12:17 Oxygen Delivery Method Room Air 09/23/24 12:17 BMI result Body Mass Index 26.8 Tobacco/Smoking Status: Tobacco use Status Tobacco use date assessed 09/23/24 09/23/24 12:21 Patient Tobacco Use Status Never used Tobacco 09/23/24 12:21 e-Cigarette/Vaping Use Never Used 09/23/24 12:21 PHQ-9: PHQ-9 Score PHQ-9: Total score 2 09/23/24 12:21 Depression Screening Interpretation: Negative Thrive Assessment: Date of Thrive Assessment Date Thrive assessed 09/23/24 09/23/24 12:21 Currently or been in a relationship where the following occur: No concerns reported Office Procedures EKG 87735-Dlskjzftntfklkuev, Complete Coding Level of Care Code Est Pt Level 4 (71691) Est Pt Prev Care 18-39y(77971) Diagnoses Encounter for general adult medical examination with abnormal findings Z00.01 Other chest pain R07.89 Chest pain type: other chest pain Moderate persistent asthma without complication J45.40 Asthma complication type: uncomplicated Chronic GERD K21.9 Vitamin D deficiency E55.9 Overweight (BMI 25.0-29.9) E66.3 Abnormal EKG R94.31 CPT Codes EKG - CPT: 24152-Eegvjhqmzlijnijzh, Complete ([id number]) Additional Codes JAMEL-7 Assessment Billing - JAMEL-7 Assessment Tool: JAMEL-7 Assessment 75105 ([id number]) PHQ-9 - 91595 - PHQ-9 Billing: Yes ([id number]) Assessment & Plan Assessment & Plan (1) Encounter for general adult medical examination with abnormal findings: Code(s): Z00.01 - Encounter for general adult medical examination with abnormal findings Category: Medical (2) Chest pain: Code(s): R07.9 - Chest pain, unspecified Category: Medical Qualifiers: Chest pain type: other chest pain Qualified Code(s): R07.89 - Other chest pain (3) Asthma, moderate persistent: Code(s): J45.40 - Moderate persistent asthma, uncomplicated Category: Medical Qualifiers: Asthma complication type: uncomplicated Qualified Code(s): J45.40 - Moderate persistent asthma, uncomplicated (4) Chronic GERD: Code(s): K21.9 - Gastro-esophageal reflux disease without esophagitis Category: Medical (5) Vitamin D deficiency: Code(s): E55.9 - Vitamin D deficiency, unspecified Category: Medical (6) Overweight (BMI 25.0-29.9): Code(s): E66.3 - Overweight Category: Medical (7) Abnormal EKG: Code(s): R94.31 - Abnormal electrocardiogram [ECG] [EKG] Category: Medical Plan History of Present Illness - The patient is a 33-year-old male presenting with asthma, GERD, and for a physical exam. - Asthma is well-controlled but the patient experiences GERD symptoms, described as throat discomfort, which occurs three to four times weekly and is managed with omeprazole. It seems as if Episodes of GERD sometimes manifest as chest tightness without pain, causing discomfort. - GERD symptoms worsen when lying down or after consuming specific foods such as spaghetti, pizza, or citrus. - Previous vitamin D deficiency was identified, as levels were low two years ago, with the patient having stopped supplementation three to four months prior. - The patient denies any family history of heart disease. - Alcohol consumption is occasional, reported as once monthly, consisting of two or three beers or vodka. - Noted use and cessation of alternative nicotine products in the last month. Health Maintenance - Discussed the importance of continuous vitamin D supplementation due to previously identified deficiency. - Recommended that patient maintain a healthy diet avoiding specific triggers of GERD (spaghetti, pizza with tomato sauce, and citrus). Employment - The patient works in [employer] for the [employer], which involves physical activities such as mowing lawns, weed whacking, leaf collection, and snow removal depending on the season. Diagnostic results: Lab orders placed EKG done today shows normal sinus rhythm no acute findings, slight abnormalities noted inverted T-waves V1 RR pattern in AVF I have ordered a stress test for the patient Patient Instructions - Begin daily use of pantoprazole 40 mg better management of GERD symptoms. - Continue vitamin D supplementation; consider [id number] options if necessary. - Avoid specific trigger foods such as spaghetti, tomato sauce, and citrus to reduce GERD symptoms. - Monitor for any changes or worsening of symptoms and seek care if necessary. - continue inhaler Follow-up three-month Orders: Orders Comprehensive Met. Panel Today E55.9 - Vitamin D deficiency, unspecified, E66.3 - Overweight, J45.40 - Moderate persistent asthma, uncomplicated, Z00.01 - Encounter for general adult medical examination with abnormal findings CA stress test Today R07.89 - Other chest pain, R94.31 - Abnormal electrocardiogram [ECG] [EKG] Complete Blood Count Auto Diff Today E55.9 - Vitamin D deficiency, unspecified, E66.3 - Overweight, J45.40 - Moderate persistent asthma, uncomplicated, Z00.01 - Encounter for general adult medical examination with abnormal findings LDL Cholesterol Direct Today E55.9 - Vitamin D deficiency, unspecified, E66.3 - Overweight, J45.40 - Moderate persistent asthma, uncomplicated, Z00.01 - Encounter for general adult medical examination with abnormal findings Vitamin D 25-OH (D2 and D3) Today E55.9 - Vitamin D deficiency, unspecified, E66.3 - Overweight, J45.40 - Moderate persistent asthma, uncomplicated, Z00.01 - Encounter for general adult medical examination with abnormal findings Medications: New pantoprazole 40 mg PO DAILY 90 tabs 0RF
--- OUTSIDE RECORDS SUMMARY | 2024-09-23 14:15 | XMS_ITS | Clinical Summary ---
[facility] Address [address] [place] [address] Care Team Providers Care Safety Officer Name Role Phone Teresa Vaughan MD Primary Care Provider [phone] Social History Tobacco Use Types Packs/Day Years Used Date Smoking Tobacco: Never Assessed Sex and Gender Information Value Date Recorded Sex Assigned at Not on file Legal Sex Male 1:34 PM EDT Gender Identity Not on file Sexual Orientation Not on file Obstetrics History Plan of Treatment Health Maintenance Due Date Last Done Comments DTaP,Tdap,and Td Vaccines (1 - Tdap) 11/12/2010 Hepatitis B Vaccines (1 of 3 - 19+ 3-dose series) 11/12/2010 COVID-19 Vaccine ( - 2023-2 5 season) 2024 Influenza Vaccine (#1) 2024 Depression Screening 04/01/2024 HIV Screening 04/01/2024 Hepatitis C Screening 04/01/2024 Social Influencers of Health Screening 04/01/2024 HIB Vaccines Aged Out No longer eligi ble based on patient's age to complete this topic HPV Vaccines Aged Out No longer eligi ble based on patient's age to complete this topic Hepatitis A Vaccines Aged Out No long er eligible based on patient's age to complete this topic IPV Vaccines Aged Out No longer eligi ble based on patient's age to complete this topic MMR Vaccines Aged Out No longer eligi ble based on patient's age to complete this topic Meningococcal ACWY Vaccine Aged Out N o longer eligible based on patient's age to complete this topic Meningococcal B Vaccine Aged Out No l onger eligible based on patient's age to complete this topic Pneumococcal Vaccine: Pediat rics (0 to 5 Years) and At-Risk Patients (6 to 64 Years) Aged Out No longer eligible b ased on patient's age to complete this topic RSV Immunization Patients Un mon[place] 20 months Aged Out No longer eligible b ased on patient's age to complete this topic Varicella Vaccines Aged Out No longer eligible based on patient's age to complete this topic Care Teams Safety Officer Relationship Specialty Start Date End Date Teresa Vaughan MD [address] [place] [address] PCP - General 01/12/24
--- OUTSIDE RECORDS SUMMARY | 2024-09-23 14:15 | XMS_ITS ---
Author Name [facility] Organization Unknown History of Medication Use Medication Directions Dispensed Refills Start Date End Date Stat No known medications No known medications active Problems Problem Status Onset Date Problem Type Date of Resoluti on Source Chest pain active EncounterDiagnosisAct [facility] Encounters Encounter Type Encounter Reason Primary Diagnosis Location Date Emergency Chest pain, unspecified Chest pain, unspecified [facility] 01/12/2024 Care Team Organization Name Specialty Phone Email Start Date End Da te [facility] Medical Technologist Microbiology 0 01/13/2024 [facility] 2023 [facility] 01/12/2024
== END 2024-09-23 12:56 | disposition home or self-care (01) ==
LOC: HO.HMCC 12:14
PROVIDERS: PCP Internal Medicine; Visit Provider Internal Medicine
DX: Z00.01 Encounter for general adult medical examination with abnormal findings (principal); R07.89 Other chest pain; J45.40 Moderate persistent asthma, uncomplicated; K21.9 Gastro-esophageal reflux disease without esophagitis; E55.9 Vitamin D deficiency, unspecified; E66.3 Overweight; R94.31 Abnormal electrocardiogram [ECG] [EKG]

== ENCOUNTER → 2024-10-13 10:24 | Outpatient (REF) | payer OTHER, SELFPAY ==
--- NOTE | 2024-10-13 10:27 | CA_ITS ---
Acquisition Time: 2024-10-13 10:30:29 Total Exercise Time: 00:09:37 Test Indications: CP Medications: SEE H&P Protocol: BELLE Max HR: 164 BPM 87% of Pred: 188 BPM Max BP: 170/52 mmHG Max Work Load: 11.1 METS Exercise stress test with exercise 9 mins 37 secs of Belle Protocol, achieving 87% MPHR, with reports of mild SOB, no chest pain, without any arrythmias, with normotensive response to exercise. Without any EKG changes meeting criteria for ischemia. In recovery, breathing quickly returned to baseline. Test reviewed with Dr. Ziegler. Referred By: Teresa Vaughan Electronically Signed By: Josh Khan
--- OUTSIDE RECORDS SUMMARY | 2024-10-13 12:03 | XMS_ITS | Clinical Summary ---
[facility] Organization [facility] Address [address] [place] [address] Care Team Providers Care Ice Cream Freezer Helper Name Role Phone Teresa Vaughan MD Primary Care Provider [phone] Social History Tobacco Use Types Packs/Day Years [...] - 19+ 3-dose series) 11/12/2010 COVID-19 Vaccine (2023-2 5 season) 2024 Depression Screening 04/01/2024 HIV Screening 04/01/2024 Hepatitis C Screening 04/01/2024 Social Influencers of Health Screening 04/01/2024 Influenza Vaccine (Season Ended) 2025 HIB Vaccines Aged Out No longer eligi [...] age to complete this topic Care Teams Ice Cream Freezer Helper Relationship Specialty Start Date End Date Teresa Vaughan MD [address] [place] [address] PCP - General 01/12/24
--- OUTSIDE RECORDS SUMMARY | 2024-10-13 12:03 | XMS_ITS | Clinical Summary ---
Author Organization [facility] Address [address] [place] [address] Care Team Providers Care Mat Linker Name Role Phone Teresa Vaughan MD Primary Care Provider [phone] Allergies No known active allergies Medications No [...] age to complete this topic Care Teams Mat Linker Relationship Specialty Start Date End Date Teresa Vaughan MD [address] [place] [address] PCP - General Internal Medicine 01/12/24
== END ==
LOC: HO.CARD 10:24
PROVIDERS: PCP Internal Medicine; Visit Provider Internal Medicine
DX: R07.89 Other chest pain (principal); R94.31 Abnormal electrocardiogram [ECG] [EKG]
CPT/HCPCS: 93017

== ENCOUNTER → 2024-10-13 10:27 | Outpatient (BNV) | payer OTHER, SELFPAY | PROVIDERS: PCP Internal Medicine | DX: R06.02 Shortness of breath (principal) | CPT/HCPCS: 93016; 93018 ==

== ENCOUNTER 2024-12-23 14:55 | Outpatient (AMB) | payer OTHER, SELFPAY ==
--- NOTE | 2024-12-23 15:03 | A.OFFPC_ITS ---
Vital Signs 12/23/24 15:04 Height 6 ft 1 in Weight 199 lb 2 oz BMI 26.3 BP 118/70 Blood Pressure Location Rt brachial Position Sitting Pulse 69 Pulse Source Pulse Oximeter Temp 97.2 F Temp Source Oral Pulse Oximetry (%) 98 Oxygen Delivery Method Room Air Intake Visit Reasons: 3m follow up Key Account Executive Required: No Allergies No Known Allergies (NO KNOWN ALLERGIES) Allergy (Unknown, Verified 12/23/24 15:07) UNKNOWN Medication List - Last Reconciled 12/23/24 by Teresa Vaughan MD albuterol sulfate 90 mcg/actuation (ProAir HFA) 1 inh inhalation QID PRN 90 days fluticasone propion-salmeterol 500-50 mcg/dose (Wixela Inhub) 1 inh inhalation BID 90 days Tobacco use date assessed: 12/23/24 Dental Screening Dental Screen Date: 09/23/24 Did you have a dental visit in the last 12 months?: Yes Did you have a dental problem in the last 6 months where you did not have access to dental care?: No Was dental information given to patient?: Patient has dentist HPI 3m follow up HPI Details History - The patient is a 34-year-old male pres enting with episodes of excessive daytime sleepiness and fatigue. - The symptoms of tiredness and weakness started approximately two weeks ago and occur even without physical exertion. - The patient experiences drowsiness, es pecially in the afternoon, which sometimes occurs while driving. - No significant associated symptoms suc h as fever, nausea, or vomiting were reported prior to onset. - Denies any change in work routine or s ubstantial life events correlating with symptom onset. - Reports feelings of anxiety awakening him when on the verge of falling asleep or during unexpected muscle jerks. - Sleep pattern involves going to bed ar ound 10:30 to 11:00 PM and waking at 6:00 to 6:15 AM, suggesting about 6.5 hours of sleep which the patient feels is insufficient. - The fatigue does not notably persist d uring weekends when able to rest more. - The patient reports no history of cond itions like seizures or sleep disorders in the family. - Denies use of alcohol or smoking at wo rk, reduced nicotine intake recently from use of 5-6 mg nicotine patches. - Recent improvement noted in reflux sym ptoms with lifestyle changes; not currently using pantoprazole. - Reports occasional constipation but de scribes bowel movements as occurring every other day or more frequently at times. Medical History: - Gastroesophageal reflux disease, previ ously managed with pantoprazole, currently resolved with lifestyle changes. Medications: - Nicotine patch, reduced to 1 per day, for nicotine dependence. - Vitamin D supplement, [id number] , dosage unspecified. - Magnesium supplement, unspecified dosa ge. 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 - Has been reducing nicotine use markedl y, now down to 1 patch per day. - Denies the use of alcohol, recreationa l drugs, or marijuana. - Sleep impacted by work schedule; feels more rested on weekends or when able to sleep longer. Family History: - No known family history of seizures or sleep disorders. Problem List - Excessive Daytime Sleepiness - Nicotine Dependence - Constipation - Fatigue Patient Instructions - Proceed to lab for blood tests before 3:30 PM. - Follow up with a sleep specialist for further evaluation of sleep issues. - Ensure to get more rest, aiming for mo re than 6.5 hours of sleep per night if possible. - Monitor and report any significant reynold nges in symptoms or new symptoms. Review of Systems - General: No fever no chills - Neurological: No headaches no dizziness - Ear nose throat: No sore throat no hearing difficulty no ear pain - Cardiovascular: No syncope, no chest pain, no palpitations - Gastrointestinal: No nausea vomiting or diarrhea - Endocrine: No polyuria polydipsia no heat intolerance - Genitourinary: No dysuria , no blood in urine Physical Exam General: No acute distress HEENT: No acute findings Neck: Supple Respiratory system: Able to talk in full sentences, no audible wheeze Cardiovascular: S1-S2 regular in rate and rhythm Gastrointestinal: Constipated, feels like needing to go but unable to Extremities: No new findings 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 x3 motor sensory intact, reports general weakness sometimes, body feels heavy Skin: Normal turgor [facility] Medical History Epidermal cyst Surgical History History of esophagogastroduodenoscopy (EGD) History of excision of epidermal inclusion cyst History of wisdom tooth extraction Social History Housing: House Patient Tobacco Use Status: Never used Tobacco e-Cigarette/Vaping Use: Never Used Second Hand Smoke Exposure: No service: No Current occupational status: employed Cognitive needs: No Hearing needs: No Vision needs: No Questionnaire PHQ-9 Over the last 2 weeks, how often have you been bothered by any of the following problems? 1. Little interest or pleasure in doing things: not at all 2. Feeling down, depressed, or hopeless: not at all 3. Trouble falling or staying asleep, or sleeping too much: several days 4. Feeling tired or having little energy: several days 5. Poor appetite or overeating: not at all 6. Feeling bad about yourself - or that you are a failure or have let yourself or your family down: not at all 7. Trouble concentrating on things, such as reading the newspaper or watching television: not at all 8. Moving or speaking so slowly that other people could have noticed. Or the opposite - being so fidgety or restless that you have been moving around a lot more than usual: not at all 9. Thoughts that you would be better off or of hurting yourself in some way: not at all Total score: 2 Depression Screening Interpretation: Negative Depression Screening Done: Yes 37663 - PHQ-9 Billing: Yes Source: Developed by Drs. Austyn Rivera, Teetee Zamarripa, Rom Robledo and colleagues, with an educational enedina from [employer]. Thrive Questionnaire Date Thrive assessed: 12/23/24 I am a: Patient What is your living situation today?: I have a steady place to live Within the past 12 months, did the food you bought not last and you didn't have the money to get more?: Never true Within the past 12 months, did you worry whether your food would run out before you got money to buy more?: Never true Do you have trouble paying for medicines?: No Do you have trouble getting transportation to medical appointments?: No Do you have trouble paying your heating and electricity bill?: No Do you have trouble taking care of your child, family member or friend?: No Do you have trouble with day-to-day activities such as bathing, preparing meals, shopping, managing finances, etc.?: No Are you currently unemployed and looking for a job?: No Are you interested in more education?: No Please select the resources that you would like help with: None Currently or been in a relationship where the following occur: No concerns reported THRIVE Score: 0 JAMEL-7 AMB Questionnaire JAMEL-7 Date JAMEL - 7 assessed: 09/23/24 Source: Developed by Drs. Austyn Rivera, Teetee Zamarripa, oRm Robledo and colleagues, with an educational enedina from [employer]. Physical exam (Primary Care) Vital Signs: Last Vital Signs Temp 97.2 F 12/23/24 15:04 Pulse 69 12/23/24 15:04 BP 118/70 12/23/24 15:04 Pulse Ox 98 12/23/24 15:04 Oxygen Delivery Method Room Air 12/23/24 15:04 BMI result Body Mass Index 26.3 Tobacco/Smoking Status: Tobacco use Status Tobacco use date assessed 12/23/24 12/23/24 15:09 Patient Tobacco Use Status Never used Tobacco 12/23/24 15:09 e-Cigarette/Vaping Use Never Used 12/23/24 15:09 PHQ-9: PHQ-9 Score PHQ-9: Total score 2 12/23/24 15:26 Depression Screening Interpretation: Negative Thrive Assessment: Date of Thrive Assessment Date Thrive assessed 12/23/24 12/23/24 15:09 Currently or been in a relationship where the following occur: No concerns reported Coding Level of Care Code Est Pt Level 3 (63516) Diagnoses Tiredness R53.83 Excessive daytime and night-time sleepiness G47.19 Additional Codes PHQ-9 - 31670 - PHQ-9 Billing: Yes ([id number]) Assessment & Plan Assessment & Plan (1) Tiredness: Code(s): R53.83 - Other fatigue Category: Medical (2) Excessive daytime and night-time sleepiness: Code(s): G47.19 - Other hypersomnia Category: Medical Plan History - The patient is a 34-year-old male presenting with episodes of excessive daytime sleepiness and fatigue. - The symptoms of tiredness and weakness started approximately two weeks ago and occur even without physical exertion. - The patient experiences drowsiness, especially in the afternoon, which sometimes occurs while driving. - No significant associated symptoms such as fever, nausea, or vomiting were reported prior to onset. - Denies any change in work routine or substantial life events correlating with symptom onset. - Reports feelings of anxiety awakening him when on the verge of falling asleep or during unexpected muscle jerks. - Sleep pattern involves going to bed around 10:30 to 11:00 PM and waking at 6:00 to 6:15 AM, suggesting about 6.5 hours of sleep which the patient feels is insufficient. - The fatigue does not notably persist during weekends when able to rest more. - The patient reports no history of conditions like seizures or sleep disorders in the family. - Denies use of alcohol or smoking at work, reduced nicotine intake recently from use of 5-6 mg nicotine patches. - Recent improvement noted in reflux symptoms with lifestyle changes; not currently using pantoprazole. - Reports occasional constipation but describes bowel movements as occurring every other day or more frequently at times. Medical History: - Gastroesophageal reflux disease, previously managed with pantoprazole, currently resolved with lifestyle changes. Medications: - Nicotine patch, reduced to 1 per day, for nicotine dependence. - Vitamin D supplement, [id number], dosage unspecified. - Magnesium supplement, unspecified dosage. Social History: - Employed in [employer] full-time; reports physically demanding work. - Has been reducing nicotine use markedly, now down to 1 patch per day. - Denies the use of alcohol, recreational drugs, or marijuana. - Sleep impacted by work schedule; feels more rested on weekends or when able to sleep longer. Family History: - No known family history of seizures or sleep disorders. Problem List - Excessive Daytime Sleepiness - Nicotine Dependence - Constipation - Fatigue Patient Instructions - Proceed to lab for blood tests before 3:30 PM. - Follow up with a sleep specialist for further evaluation of sleep issues. - Ensure to get more rest, aiming for more than 6.5 hours of sleep per night if possible. - Monitor and report any significant changes in symptoms or new symptoms. Orders: Orders TSH reflex Free T4 Today G47.19 - Other hypersomnia, R53.83 - Other fatigue Complete Blood Count Auto Diff Today G47.19 - Other hypersomnia, R53.83 - Other fatigue Vitamin D 25-OH (D2 and D3) Today G47.19 - Other hypersomnia, R53.83 - Other fatigue Ferritin Today G47.19 - Other hypersomnia, R53.83 - Other fatigue Comprehensive Met. Panel Today G47.19 - Other hypersomnia, R53.83 - Other fatigue Vitamin B12 Today G47.19 - Other hypersomnia, R53.83 - Other fatigue Referrals Sleep Medicine Referral G47.19 - Other hypersomnia
[2024-12-23 15:04] VITALS: BP 118/70; PULSE 69; TEMP 36.2; O2SAT 98; BMI 26.3
--- OUTSIDE RECORDS SUMMARY | 2024-12-23 15:23 | XMS_ITS ---
Author Name [facility] Organization Unknown History of Medication Use Medication Directions Dispensed Refills Start Date End Date Stat No known medications No known medications active Problems Problem Status Onset Date Problem Type Date of Resoluti on Source Chest pain active EncounterDiagnosisAct [facility] Encounters Encounter Type Encounter Reason Primary Diagnosis Location Date Emergency Chest pain, unspecified Chest pain, unspecified [facility] 01/12/2024 Care Team Organization Name Specialty Phone Email Start Date End Da te [facility] 0 01/13/2024 [facility] 2023 [facility] 01/12/2024
--- OUTSIDE RECORDS SUMMARY | 2024-12-23 15:23 | XMS_ITS | Clinical Summary ---
Author Organization [facility] Address [address] [place] [address] Care Team Providers Care Project Designer Name Role Phone Tereas Vaughan MD Primary Care Provider [phone] Allergies No known active allergies Medications No [...] 90 01/12/2024 6:07 PM EDT Temperature 36.7 C (98 F) 01/12/2024 6:07 PM EDT Respiratory Rate 17 [...] (1 - Tdap) 11/12/2010 Influenza Vaccine (#1) 2025 Pneumococcal Vaccine Aged Out No long er eligible based on patient's age to complete this topic RSV Ped < 20 months Aged Out No longe r eligible based on patient's age to complete this topic Care Teams Project Designer Relationship Specialty Start Date End Date Teresa Vaughan MD [address] [facility] [place] [address] PCP - General Internal Medicine 01/12/24
--- OUTSIDE RECORDS SUMMARY | 2024-12-23 15:23 | XMS_ITS | Clinical Summary ---
Author Organization [facility] Address [address] [place] [address] Care Team Providers Care Digital Content Producer Name Role Phone Teresa Vaughan MD Primary Care Provider [phone] Social History Tobacco Use Types Packs/Day Years [...] Vaccine ( - 2023-2 5 season) 2024 Depression Screening 04/01/2024 HIV Screening 04/01/2024 Hepatitis C Screening 04/01/2024 Social Influencers of Health Screening 04/01/2024 Influenza Vaccine (#1) 2025 HIB Vaccines Aged Out No longer [...] 5 Years) and At-Risk Patients (6 to 49 Years) Aged Out No longer eligible b ased on patient's age to complete this topic RSV Immunization Patients [place] 20 months Aged Out No longer eligible b ased on patient's age to complete this topic Varicella Vaccines Aged Out No longer eligible based on patient's age to complete this topic Care Teams Digital Content Producer Relationship Specialty Start Date End Date Teresa Vaughan MD [address] [place] [address] PCP - General 01/12/24
== END 2024-12-23 15:17 | disposition home or self-care (01) ==
LOC: HO.HMCC 14:56
PROVIDERS: PCP Internal Medicine; Visit Provider Internal Medicine
DX: R53.83 Other fatigue (principal); G47.19 Other hypersomnia

== ENCOUNTER → 2024-12-23 14:55 | Outpatient (BNVA) | payer OTHER, SELFPAY | PROVIDERS: PCP Internal Medicine; Visit Provider Internal Medicine | DX: G47.19 Other hypersomnia (principal); R53.83 Other fatigue; Z13.31 Encounter for screening for depression | CPT/HCPCS: 96127 ==

== ENCOUNTER 2024-12-24 14:54 | Outpatient (REF) | payer OTHER, SELFPAY ==
--- OUTSIDE RECORDS SUMMARY | 2024-12-24 14:56 | XMS_ITS | Clinical Summary ---
[facility] Organization [facility] Address [address] [place] [address] Care Team Providers Care Audio Visual Secretary Name Role Phone Teresa Vaughan MD Primary Care Provider [phone] Social History Tobacco Use Types Packs/Day Years [...] age to complete this topic Care Teams Audio Visual Secretary Relationship Specialty Start Date End Date Teresa Vaughan MD [address] [place] [address] PCP - General 01/12/24
--- OUTSIDE RECORDS SUMMARY | 2024-12-24 14:57 | XMS_ITS | Clinical Summary ---
Author Organization [employer] [facility] Address [address] [place] [address] Care Team Providers Care Biophysics Teacher Name Role Phone Teresa Vaughan MD Primary Care Provider [phone] Allergies No known active allergies Medications No [...] age to complete this topic Care Teams Biophysics Teacher Relationship Specialty Start Date End Date Teresa Vaughan MD [address] [facility] [address] PCP - General Internal Medicine 01/12/24
[2024-12-24 16:18] LABS: MANUAL DIFF FLAG NO
[2024-12-24 16:24] LABS: Hematocrit 42.0 % (42.0-52.0); Hemoglobin 14.1 g/dl (14.0-18.0); Imm Gran Abs Auto 0.03 X10*3/uL (0.00-0.03); Imm Gran Pct Auto 0.4 % (0.0-0.4); Lymphocytes Absolute Auto 2.0 X10*3/uL (1.2-4.9); Mean Corpuscular HGB Conc 33.6 g/dl (31.0-36.0); Mean Corpuscular Hemoglobin 31.6 pg (27.0-33.0); Mean Corpuscular Volume 94.2 fL (80.0-98.0); NRBC Abs Auto 0.000 X10*3/uL (0.0-0.012); NRBC Pct Auto 0.0 /100WBC (0.0-0.2); Platelet Count 316 X10*3/uL (160-400); Red Blood Count 4.46 X10*6/uL (4.60-5.80); White Blood Count 8.3 X10*3/uL (4.8-10.8)
[2024-12-24 16:44] LABS: Alanine Aminotransferase 25 U/L (0-40); Albumin Level 4.7 g/dL (3.5-5.0); Alkaline Phosphatase 51 U/L (39-117); Anion Gap 11 (12-20); Aspartate Amino Transferase 22 U/L (5-37); Blood Urea Nitrogen 14 mg/dL (9-16); Calcium 8.9 mg/dL (8.4-10.2); Carbon Dioxide 27 mmol/L (22-29); Chloride 105 mmol/L (96-108); Estimated Glomerular Filt Rate > 60; Potassium 3.9 mmol/L (3.3-5.1); Sodium 139 mmol/L (135-145); Total Protein 7.2 g/dL (6.5-8.0)
[2024-12-24 17:01] LABS: Ferritin 94 ng/mL (20-250)
[2024-12-24 17:12] LABS: Vitamin B12 298 pg/mL (200-900)
[2024-12-28 13:18] LABS: Vitamin D 25-OH, D2 <4 ng/mL; Vitamin D 25-OH, D3 32 ng/mL; Vitamin D 25-OH, Total 32 ng/mL (30-100)
== END 2024-12-24 14:55 | disposition home or self-care (01) ==
LOC: HO.HMGCLDS 14:54
PROVIDERS: PCP Internal Medicine; Visit Provider Internal Medicine
DX: G47.19 Other hypersomnia (principal); R53.83 Other fatigue
CPT/HCPCS: 36415; 80053; 82306; 82607; 82728; 84443; 85025

== ENCOUNTER 2025-05-25 12:05 | Outpatient (AMB) | payer OTHER, SELFPAY ==
--- NOTE | 2025-05-25 12:34 | MHC.PC.OV ---
Intake Visit Reasons: f/u-accidently cancelled? Allergies No Known Allergies (NO KNOWN ALLERGIES) Allergy (Unknown, Verified 12/23/24 15:07) UNKNOWN Medication List - Last Reconciled 05/25/25 by Teresa Vaughan MD albuterol sulfate 90 mcg/actuation (ProAir HFA) 1 inh inhalation QID PRN 90 days fluticasone propion-salmeterol 230-21 mcg/actuation (Advair HFA) 2 puffs inhalation BID 30 days fluticasone propion-salmeterol 500-50 mcg/dose (Wixela Inhub) 1 inh inhalation BID 90 days Tobacco use date assessed: 12/23/24 Dental Screening Dental Screen Date: 09/23/24 HPI f/u-accidently cancelled? HPI Details Patient was last seen in December for asthma. He was doing very well with Advair disc however recently he had a different insurance and the medication is now have a very high copayment of $80 which patient cannot afford. He has been using his grandmother's inhaler advair [ not disc ] which is causing, so-called Wired feeling as per patient. He would like to be switched to a different inhaler. Patient will call his insurance company to see which asthma medication is covered copayment. He is also complaining of tingling in his extremities and would like to have labs done. He?s taking omeprazole as needed only does not need a script for that.? We will set up an appointment after the labs [facility] Medical History Epidermal cyst Surgical History History of esophagogastroduodenoscopy (EGD) History of excision of epidermal inclusion cyst History of wisdom tooth extraction Social History Housing: House Patient Tobacco Use Status: Never used Tobacco e-Cigarette/Vaping Use: Never Used Second Hand Smoke Exposure: No service: No Current occupational status: employed Cognitive needs: No Hearing needs: No Vision needs: No Questionnaire Thrive Questionnaire Date Thrive assessed: 09/23/24 JAMEL-7 AMB Questionnaire JAMEL-7 Date JAMEL - 7 assessed: 09/23/24 Source: Developed by Drs. Austyn Rivera, Teetee Zamarripa, Rom Robledo and colleagues, with an educational enedina from [employer]. Physical exam (Primary Care) Tobacco/Smoking Status: Tobacco use Status Tobacco use date assessed 12/23/24 12/23/24 15:09 Patient Tobacco Use Status Never used Tobacco 12/23/24 15:09 e-Cigarette/Vaping Use Never Used 12/23/24 15:09 Thrive Assessment: Date of Thrive Assessment Date Thrive assessed 09/23/24 05/25/25 12:04 Telehealth Telehealth Telehealth Platform: [email or web address] Location of provider rendering services: practice address Location of patient: address on file Patient Identification confirmed using: Name, : Yes Telehealth method: video Patient verbally consented to treatment: Yes Patient verbally consented to billing insurance company: Yes Patient informed of any privacy concerns related to visit: Yes Minutes spent on Phone/Video with Pt.: 13 Coding Level of Care Code Tele Est Pt Level 3 (52426) Diagnoses Moderate persistent asthma without complication J45.40 Asthma complication type: uncomplicated Tingling in extremities R20.2 Chronic GERD K21.9 Assessment & Plan Assessment & Plan (1) Asthma, moderate persistent: Code(s): J45.40 - Moderate persistent asthma, uncomplicated Category: Medical Qualifiers: Asthma complication type: uncomplicated Qualified Code(s): J45.40 - Moderate persistent asthma, uncomplicated (2) Tingling in extremities: Code(s): R20.2 - Paresthesia of skin Category: Medical (3) Chronic GERD: Code(s): K21.9 - Gastro-esophageal reflux disease without esophagitis Category: Medical Plan Patient was last seen in December for asthma. He was doing very well with Advair disc however recently he had a different insurance and the medication is now have a very high copayment of $80 which patient cannot afford. He has been using his grandmother's inhaler advair [ not disc ] which is causing, so-called Wired feeling as per patient. He would like to be switched to a different inhaler. Patient will call his insurance company to see which asthma medication is covered copayment. He is also complaining of tingling in his extremities and would like to have labs done. He?s taking omeprazole as needed only does not need a script for that.? We will set up an appointment after the labs Orders: Orders Hemoglobin A1c Today E55.9 - Vitamin D deficiency, unspecified, J45.40 - Moderate persistent asthma, uncomplicated, R10.13 - Epigastric pain, R20.2 - Paresthesia of skin Lipid Panel Today E55.9 - Vitamin D deficiency, unspecified, J45.40 - Moderate persistent asthma, uncomplicated, R10.13 - Epigastric pain, R20.2 - Paresthesia of skin TSH reflex Free T4 Today E55.9 - Vitamin D deficiency, unspecified, J45.40 - Moderate persistent asthma, uncomplicated, R10.13 - Epigastric pain, R20.2 - Paresthesia of skin Complete Blood Count Auto Diff Today E55.9 - Vitamin D deficiency, unspecified, J45.40 - Moderate persistent asthma, uncomplicated, R10.13 - Epigastric pain, R20.2 - Paresthesia of skin Comprehensive [place]. Panel Fast Today E55.9 - Vitamin D deficiency, unspecified, J45.40 - Moderate persistent asthma, uncomplicated, R10.13 - Epigastric pain, R20.2 - Paresthesia of skin Vitamin D 25-OH (D2 and D3) Today E55.9 - Vitamin D deficiency, unspecified, J45.40 - Moderate persistent asthma, uncomplicated, R10.13 - Epigastric pain, R20.2 - Paresthesia of skin Vitamin B12 Today E55.9 - Vitamin D deficiency, unspecified, J45.40 - Moderate persistent asthma, uncomplicated, R10.13 - Epigastric pain, R20.2 - Paresthesia of skin Ferritin Today E55.9 - Vitamin D deficiency, unspecified, J45.40 - Moderate persistent asthma, uncomplicated, R10.13 - Epigastric pain, R20.2 - Paresthesia of skin Medications: New fluticasone furoate-vilanterol 200-25 mcg/dose (Breo Ellipta) 1 inh inhalation DAILY 28 ea 0RF 30 days Refilled albuterol sulfate 90 mcg/actuation (ProAir HFA) 1 inh inhalation QID PRN 3 multiple units 1RF shortness of breath or wheezing 90 days Discontinued fluticasone propion-salmeterol 500-50 mcg/dose (Wixela Inhub) Discontinued Reason: Doctor's Order 1 inh inhalation BID 90 days 3 multiple units 1RF fluticasone propion-salmeterol 230-21 mcg/actuation (Advair HFA) further refills will need office visit, call to book apointment Discontinued Reason: Doctor's Order 2 puffs inhalation BID 30 days 12 grams 0RF
== END 2025-05-25 13:50 | disposition home or self-care (01) ==
PROVIDERS: PCP Internal Medicine; Visit Provider Internal Medicine
DX: J45.40 Moderate persistent asthma, uncomplicated (principal); R20.2 Paresthesia of skin; K21.9 Gastro-esophageal reflux disease without esophagitis